=== PATIENT | male | born 1990 | race Caucasian/White ===

== ENCOUNTER 2017-07-26 02:21 | Inpatient (IN) ==
[2017-07-26] MEDS ORDERED: MORPHINE SULFATE 4 MG/1 ML ONE (02:49)
[2017-07-26] MEDS ORDERED: MORPHINE SULFATE 4 MG/1 ML IVP ONE (02:50)
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
[2017-07-26 03:37] LABS: BASOPHILS # (AUTO) 0.03 10*3/UL; BASOPHILS % (AUTO) 0.2 % (0-1); EOSINOPHILS # (AUTO) 0.16 10*3/UL; EOSINOPHILS % (AUTO) 1.3 % (0-8); Hematocrit [HCT] 42.3 % (42.0-52.0); Hemoglobin [HGB] 14.9 g/dL (14.0-18.0); LYMPHOCYTES # (AUTO) 1.68 10*3/uL; MEAN CORPUSCULAR HEMOGLOBIN 28.2 PG (27-31); MEAN CORPUSCULAR HGB CONC 35.2 g/dL (33-37); MEAN PLATELET VOLUME 10.8 FL (7.4-12.2); MONOCYTES # (AUTO) 0.54 10*3/UL (0.3-0.8); MONOCYTES % (AUTO) 4.3 % (5-15); NEUTROPHILS # (AUTO) 10.09 10*3/UL; NEUTROPHILS % (AUTO) 80.6 % (50-80); RED BLOOD COUNT 5.29 10^6/uL (4.70-6.10)
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
[2017-07-26 03:45] LABS: PLATELET MORPHOLOGY COMMENT NORMAL MORPHOLOGY (NORM); RBC MORPHOLOGY COMMENT NORMAL MORPHOLOGY (NORM); WBC MORPHOLOGY COMMENT NORMAL MORPHOLOGY (NORM)
[2017-07-26 03:47] LABS: BLOOD UREA NITROGEN 11 mg/dL (7-22); BUN/CREATININE RATIO 15.71 (6-20); LIPASE 57 IU/L (23-300); SERUM ALBUMIN 3.8 g/dL (3.5-4.8)
[2017-07-26] MEDS ORDERED: KETOROLAC 15 MG/1 ML VIAL IVP PRN (03:49)
[2017-07-26] MEDS ORDERED: KETOROLAC 15 MG/1 ML VIAL ONE (04:17)
[2017-07-26 04:34] LABS: BILIRUBIN,URINE NEGATIVE (NEG); CLARITY,URINE CLEAR (CLEAR); COLOR,URINE YELLOW (Y); GLUCOSE, URINE (UA) NEGATIVE (NEG); NITRATE,URINE NEGATIVE (NEG); OCCULT BLOOD,URINE NEGATIVE (NEG); PROTEIN,URINE NEGATIVE (NEG); URINE SAMPLE TYPE CLEAN CATCH URINE; UROBILINOGEN,URINE 0.2 EU/dL (0.2)
[2017-07-26 04:35] LABS: AMPHETAMINE SCREEN NEGATIVE (NEG); CANNABINOID SCREEN,URINE NEGATIVE (NEG); COCAINE SCREEN NEGATIVE (NEG); METHADONE URINE SCREEN NEGATIVE (NEG); METHAMPHETAMINES SCREEN,URINE NEGATIVE (NEG); OPIATE SCREEN,URINE POSITIVE (NEG)
[2017-07-26] MEDS ORDERED: NORMAL SALINE 10 ML SYRINGE FLUSH IVP PRN (04:43)
[2017-07-26] MEDS ORDERED: LIDOCAINE W/ SODIUM BICARB 0.5 ML SYR SUBD PRN (04:43)
[2017-07-26] MEDS ORDERED: ONDANSETRON 4 MG/2 ML VIAL IVP PRN (04:43)
[2017-07-26] MEDS ORDERED: DOCUSATE 100 MG CAPSULE PO PRN (04:43)
[2017-07-26] MEDS ORDERED: CALCIUM CARBONATE 500 MG (TUMS) CHEWABLE TABLET PO PRN (04:43)
[2017-07-26] MEDS ORDERED: DIPH,PERTUSS,TET(ADACEL) VAC/PF 0.5 ML (Tdap) IM ONE (04:56)
[2017-07-26] MEDS: BACITRACIN 0.9 GM PACKET OINT TOPICAL SCH ×2 (05:03→11:11)
[2017-07-26] MEDS ORDERED: BACITRACIN 0.9 GM PACKET OINT TOPICAL ONE (05:03)
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
[2017-07-26] MEDS: HYDROcodone-APAP 5 MG -325 MG TABLET PO PRN ×2 (13:36→19:28)
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
[2017-07-27] MEDS: BACITRACIN 0.9 GM PACKET OINT TOPICAL SCH (09:15)
--- NOTE | 2017-07-27 09:39 | EKG ---
[address] [address] Measurements Intervals [place] Rate: 48 P: 20 PA: 139 QRS: 74 QRSD: 105 T: 53 QT: 390 QTc: 356 Interpretive Statements SINUS BRADYCARDIA ST CHANGES OF EARLY REPOLARIZATION No previous ECG available for comparison Electronically Signed On 07-27-17 15:32:42 MST by Jack Holder [email or web address]
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
== END 2017-07-27 11:49 | disposition home or self-care (01) | DRG 90 ==
LOC: ER 02:21 → MED/SURG 03:50
PROVIDERS: ADMIT Surgery; ATTEND Surgery